=== PATIENT | male | born 1945 | race Caucasian/White ===

== ENCOUNTER → 2016-08-15 | Outpatient (CLI) | payer MEDICARE | END | disposition home or self-care (01) | LOC: GMAM 12:33 | PROVIDERS: ATTEND Family Medicine | DX: E03.9 Hypothyroidism, unspecified (principal) ==

== ENCOUNTER → 2017-02-18 | Outpatient (CLI) | payer MEDICARE | END | disposition home or self-care (01) | LOC: GMAM 10:27 | PROVIDERS: ATTEND Family Medicine | DX: Z12.5 Encounter for screening for malignant neoplasm of prostate (principal); E03.9 Hypothyroidism, unspecified | CPT/HCPCS: 84439; 84443; G0103 ==

== ENCOUNTER → 2017-02-18 | Outpatient (CLI) | payer MEDICARE | END | disposition home or self-care (01) | LOC: GMAM 15:23 | PROVIDERS: ATTEND Family Medicine | DX: R31.21 Asymptomatic microscopic hematuria (principal); N39.0 Urinary tract infection, site not specified ==

== ENCOUNTER → 2017-02-25 | Outpatient (CLI) | payer MEDICARE ==
--- NOTE | 2017-02-25 16:58 | CT ---
EXAM DESCRIPTION: Abdomen/Pelvis w/Contrast: CT. CLINICAL HISTORY: WEIGHT LOSS COMPARISON: CT scan of the abdomen without IV contrast 08/09/2013. CT scan of the thorax with IV contrast on this visit. TECHNIQUE: Spiral-axial scans at 5.0 mm intervals through the abdomen and pelvis, after nonionic IV contrast. No oral contrast. Coronal and sagittal 2.0 mm reconstructions. Delayed scans, liver through the pelvis. Axial-spiral 5mm. No adverse reactions. Total Exam DLP: 643.19 mGy-cm. This exam was performed according to our departmental dose-optimization program which includes automated exposure control, adjustment of the mA and/or kV according to patient size and/or use of iterative reconstruction technique; to reduce radiation dose to as low as reasonably achievable (ALARA). FINDINGS: Liver, Stomach, Spleen, Adrenal Glands: Minimal intrahepatic biliary dilatation. No focal lesions. Stomach is distended with gas and minimal fluid distally. Significant decrease in intra-abdominal fat around these organs compared to the prior study 2013. Pancreas, Gallbladder, Ducts: Gallbladder visualized. Minimal dilation of the common hepatic duct and proximal common bile duct. Between the distal common bile duct and the portal vein, the pancreas head and uncinate process appears enlarged with heterogeneous enhancement. Dimension is 3.7 cm transverse and 2.3 cm AP. Minimal fat around the pancreas. Distal body and tail of pancreas are not well visualized. Distal common bile duct is not dilated. Kidneys and Ureters: 3 mm radiodense stone mid right renal collecting system. 2 mm radiodense stone mid left renal collecting system. No hydronephrosis or perinephric fluid bilaterally. Decreased perirenal fat around the kidneys. Small left cortical cysts. Mesentery: Overall decreased content around the bowel and midabdomen. Normal density where visualized. Aorta: Moderate calcification mid and distal maximum diameter 2.1 cm below the kidneys. Decreased periaortic fat with small lymph nodes present. Small Bowel: Minimal gas mostly fluid difficult to evaluate due to lack of intra-abdominal fat. Terminal Ileum/Cecum: Cecum slightly distended by fecal material. TI and appendix are difficult to visualize. . Colon: Fecal matter throughout the colon less in the descending colon is sigmoid. Minimal redundancy of the sigmoid. Rectum distended by gas. Pelvic Organs: Ossifications in the prostate gland which appears to be enlarged and impresses on the base of the urinary bladder with bladder wall thickening. No radiodense stones in the bladder. Spine and Bony Pelvis: Narrowing of the bilateral hip joints. Advanced spondylosis L1-L2. Possible calcified synovial cyst or large spur encroaching on the right L3-4 foramen which is significantly compromised. Multiple levels of facet degeneration. Abdominal Wall/Back Soft Tissues: Decreased subcutaneous adipose tissue. IMPRESSION: 1. Overall decreased intra-abdominal fat and subcutaneous adipose tissue consistent with clinical history. 2. Questionable enlargement of the uncinate process and head of the pancreas. This may be associated with dilation of intrahepatic ducts, pancreatic duct and proximal common bile duct and narrowing of distal common bile duct. Evaluation of the pancreas and other abdominal organs would be improved with CT scan of the abdomen and pelvis with IV and oral contrast. Correlate with pancreatic function testing. Also consider ultrasound of the liver biliary ducts gallbladder and pancreas. 3. Enlarged prostate gland impressing on the base of the urinary bladder with wall thickening. Consider serum PSA testing and ultrasound urinary bladder and prostate. 4. Bilateral small stones in the kidneys without obstruction. 5. Lumbar spondylosis. Severe L1-L2. Calcified synovial cyst or spur in the right foramen at L3-4 with significant compromise. Consider follow-up lumbar MRI scan if lumbar radiculopathy present. Bilateral hip joint arthrosis. 6. Atherosclerotic narrowing of the distal abdominal aorta. Lack of fat and/or lymph nodes around the mid and distal aorta. Electronically signed by: Adrian Rodas MD 02/25/2017 4:57 PM [employer]
--- NOTE | 2017-02-25 17:26 | CT ---
EXAM DESCRIPTION: Chest w/Contrast : Computed Tomography. CLINICAL HISTORY: WEIGHT LOSS COMPARISON: CT scan abdomen and pelvis with IV contrast today. CT scan of the thorax with IV contrast 07/04/2015. TECHNIQUE: Spiral-axial scans at 5.0 mm intervals through the lungs and thorax with IV contrast. 2.5 mm lung algorithm axial reconstructions. Coronal and sagittal 2.0 Mm reconstructions. No adverse reactions. Total Exam DLP: 280.35 mGy-cm. This exam was performed according to our departmental dose-optimization program which includes automated exposure control, adjustment of the mA and/or kV according to patient size and/or use of iterative reconstruction technique; to reduce radiation dose to as low as reasonably achievable (ALARA). FINDINGS: Hyperinflation in the upper lung dale with prominent dilated airspaces in the periphery of the upper lobes. Also abutting the septa and the major fissures. Bilateral apical pleural thickening more prominent near the upper mediastinum. 6 mm soft tissue nodule in the anterior right middle lobe associated with the horizontal fissure (series 3, image 71). Calcified nodule also associated with the fissure slightly more posterior and superior. 2 mm subpleural nodule anterior lateral right upper lobe noncalcified (series 38). Scarring in the inferior right middle lobe. Round subpleural nodule medial posterior right lower lobe measuring 3.5 mm (series 107). More irregular lateral nodule measuring 4.5 mm at the same level and lateral to the diaphragm. Small irregular nodule, same level, in the posterior subpleural region noncalcified measuring 2.5 mm pleural nodule 4 mm slightly higher level posterior lateral right lower lobe (image 103). 7 mm soft tissue nodule, slightly irregular margins, more anterior at the same level. More complex group of multiple nodules or septal thickening in the anterior right lower lobe not quite subpleural (image 90-100). This complex region is not well seen on the prior study. 7 mm soft tissue nodule more posterior in the right lower lobe at the same level. Also irregular 7 mm nodule in the left lower lobe at the same level, with the nearby 4 mm nodule also subpleural. No pleural effusion or pneumothorax bilaterally. Thyroid gland not well seen in the mediastinum with minimal enhancement. 1.5 mm short axis enlarged superior right hilar nodes. 10 mm short axis AP window node. 1.2 cm short axis azygous space node. These nodes were present on the prior study. Central VAD tip in the SVC with left diffuse atherosclerotic calcification in the thoracic aorta and the proximal brachiocephalic vessels. Left Subclavian access. Minimal spondylosis at multiple levels. IV contrast enters the azygos vein and the hemiazygos vein resulting in contrast directly entering venous drainage of mid thoracic vertebra. There is also collateral flow in the right anterior and lateral chest wall. IMPRESSION: 1. Multiple nodules bilaterally significantly more than seen on the prior study. Some were better seen due to dedicated thin section lung algorithm used on this scan. However it is interpreted that there are new nodules bilaterally in the lower lobes. Cannot be determined if these are neoplastic or inflammatory. Some of the nodules appeared as part of a complex, especially right lower lobe. No nodules large enough for tissue sampling. Consider follow-up chest CT scan in 3 month interval and or PET scan. 2. Enlarged right hilar nodes and mediastinal nodes were also seen on the prior study. 3. Tip of VAD is abutting or corrected at the azygos vein in the SVC. Medication given in the VAD is likely to initially go into the hemiazygos system and venous drainage of the vertebra. Electronically signed by: Adrian Rodas MD 02/25/2017 5:25 PM [employer]
== END | disposition home or self-care (01) ==
LOC: CT 08:00
PROVIDERS: ATTEND Family Medicine
DX: E03.9 Hypothyroidism, unspecified (principal); R63.4 Abnormal weight loss

== ENCOUNTER → 2017-02-28 | Outpatient (CLI) | payer MEDICARE | END | disposition home or self-care (01) | LOC: GMAM 10:45 | PROVIDERS: ATTEND Family Medicine | DX: R93.8 Abnormal findings on diagnostic imaging of other specified body structures (principal) ==

== ENCOUNTER → 2017-03-04 | Outpatient (CLI) | payer MEDICARE ==
--- NOTE | 2017-03-04 16:45 | US ---
EXAM DESCRIPTION: Pancreas CLINICAL HISTORY: 71 years Male, ABNORMAL CT OR MRI COMPARISON: CT scan of the abdomen and pelvis with IV contrast 02/25/2017. TECHNIQUE: Transabdominal standard scanning: Two-dimensional and Doppler modes. FINDINGS: No stones or sludge in the gallbladder. No wall thickening or fluid. Nontender with transducer pressure. Common bile duct dilated 7.8 mm. Pancreas normal echogenicity and uniform echoes. Head of the pancreas measures approximately 2.0 x 1.6 cm. Pancreatic duct is dilated measuring 3.2 mm. No fluid around the pancreas. No cysts. Normal ultrasound of the liver. Smooth capsule. No intrahepatic biliary dilatation. Normal hepatopedal flow of the portal vein. No ascites. Right kidney measures 10.5 cm long axis. Lobulated contour with echogenicity of the cortex equal to the liver. No hydronephrosis or perinephric fluid. Upper pole object with increased echogenicity measuring 6.7 mm but no definite acoustic shadowing. Vascularity by Doppler. IMPRESSION: 1. Normal size of the head of the pancreas normal echogenicity in the pancreas. No cysts or fluid. Pancreatic duct is not dilated. 2. Normal ultrasound of the gallbladder. No wall thickening or fluid. Common bile duct is dilated. Consider MRCP or ERCP. 3. Normal ultrasound of the liver. 4. Lobulated contour and increased echogenicity of the right renal cortex but no thickening. 6 mm echogenic object in the kidney with no shadowing. 3 mm stone seen on prior CT scan. 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
== END ==
LOC: US 09:30
PROVIDERS: ATTEND Family Medicine
DX: R93.8 Abnormal findings on diagnostic imaging of other specified body structures (principal); R63.4 Abnormal weight loss; N20.0 Calculus of kidney; R91.8 Other nonspecific abnormal finding of lung field; M47.16 Other spondylosis with myelopathy, lumbar region

== ENCOUNTER → 2017-04-10 | Outpatient (CLI) | payer MEDICARE ==
--- NOTE | 2017-04-10 16:54 | CT ---
EXAM DESCRIPTION: Abdomen/Pelvis w/Contrast: Computed Tomography. CLINICAL HISTORY: HYPERPLASIA OF PROSTATE COMPARISON: CT scan of abdomen and pelvis 08/09/2013. CT scan of the chest with contrast 02/25/2017. TECHNIQUE: Spiral-axial scans at 5.0 mm intervals through the abdomen and pelvis, after water-soluble oral contrast and nonionic IV contrast. Coronal and sagittal 2.0 mm reconstructions. Delayed scans, liver through the pelvis. Axial-spiral 5mm. No adverse reactions. Total Exam DLP: 777.97 mGy-cm. This exam was performed according to our departmental dose-optimization program which includes automated exposure control, adjustment of the mA and/or kV according to patient size and/or use of iterative reconstruction technique; to reduce radiation dose to as low as reasonably achievable (ALARA). FINDINGS: Lung bases and pleura: Minimally dilated lung spaces bilaterally with minimally prominent bibasilar interstitial markings. 4 mm subpleural soft tissue nodule in the posterior right lower lobe on series 2, image 2). Liver, Stomach, Spleen, Adrenal Glands: Minimal intrahepatic biliary dilatation but no focal liver lesions. Oral contrast in the stomach but not distended. Spleen and adrenal glands are negative.. Pancreas, Gallbladder, Ducts: Gallbladder visualized. Dilated common bile duct. Pancreas not well visualized due to stomach small bowel and colon and lack of fat the organs. Pancreatic head may be enlarged with decreased enhancement. Kidneys and Ureters: Tiny cyst in the inferior pole of the left kidney in the superior pole the right kidney, otherwise unremarkable. Mesentery: No free air or free fluid. No ascites. Aorta: Moderate coronary calcification including the ostia of the major branch vessels extending into the bilateral common iliac arteries. Narrowing of the distal aortic lumen. 1 cm short axis periaortic lymph node posterior to the left renal vein. Small Bowel: Containing fluid and gas and oral contrast but not distended. Terminal Ileum/Cecum: No oral contrast in the TI or cecum. Cecum distended by fecal material. Appendix not seen.. Surrounding fat minimal and thus difficult to evaluate Colon: Diffuse fecal matter in ascending colon transverse colon with less fecal material in the descending colon but diffuse fecal material in the rectosigmoid which is minimally redundant. Pelvic Organs: Calcifications centrally in the prostate gland abutting the urinary bladder. Spine and Bony Pelvis: Fusion of the L1-L2 vertebral bodies at the disc space; significantly narrowed with bilateral neural foraminal narrowing. Bilateral L4-5 and L5-S1 facet arthrosis. Spondylosis included thoracic spine. Bilateral hip joint space narrowing. Abdominal Wall/Back Soft Tissues: No definite hernia. IMPRESSION: 1. Dilated common bile duct and head of the pancreas may be enlarged with margins poorly defined. Pancreatic duct is not dilated. Consider right upper quadrant abdominal ultrasound. 2. Small periaortic lymph node at the level of the left renal vein. 3. 4 mm soft tissue nodule subpleural base right lower lobe lung. Dilated airspaces bilaterally. Consider follow-up chest CT scan without IV contrast. 4. Spondylosis in the lumbar spine advanced at the L1-2 level with canal and foraminal narrowing. Facet arthrosis more inferiorly. 5. Diffuse fecal obstipation of the colon. Electronically signed by: Adrian Rodas MD 04/10/2017 4:53 PM [facility]
== END ==
LOC: CT 08:50
PROVIDERS: ATTEND Family Medicine
DX: R93.8 Abnormal findings on diagnostic imaging of other specified body structures (principal); N40.1 Benign prostatic hyperplasia with lower urinary tract symptoms; R91.1 Solitary pulmonary nodule; M47.896 Other spondylosis, lumbar region; K59.09 Other constipation

== ENCOUNTER → 2017-09-03 | Outpatient (CLI) | payer MEDICARE | LOC: LAB.NP 10:47 | PROVIDERS: ATTEND Family Medicine | DX: E03.9 Hypothyroidism, unspecified (principal); M10.9 Gout, unspecified ==

== ENCOUNTER → 2017-10-16 | Outpatient (CLI) | payer MEDICARE ==
--- NOTE | 2017-10-16 11:10 | CT ---
EXAM DESCRIPTION: Chest w/Contrast CLINICAL HISTORY: 71 years, Male, PULMONARY NODULE COMPARISON: CT chest with contrast February 25, 2017, CT abdomen and pelvis with contrast April 10, 2017 TECHNIQUE: Thin-section noncontrast axial CT images are obtained according to our protocol. Reconstructed MPR images are created and reviewed as well. FINDINGS: Lungs: Biapical parenchymal scarring suggests radiation fibrosis. Clinical correlation recommended. Severe centrilobular and panlobular emphysematous changes are seen in the upper lobes. Small calcified granuloma in the right middle lobe is seen in addition to noncalcified nodule 6 mm unchanged from previous study. Scattered groundglass infiltrates are seen with numerous tiny nodules and scattered areas of septal thickening in the lower lobes. Small incompletely solid nodule in the anterior segment left upper lobe appears new and measures 5 mm. This can be followed. Small nodule in the subpleural posterior basal right lower lobe measures 4 mm (axial image 105, series 4) and could be followed. Other areas of nodular infiltration could be followed as well. Previous study February 2017 showed nodularity of the right lower lobe and overall this appears improved. Findings are most consistent with indolent infection as with fungal agent or mycobacterium avium intracellulare. Correlate with bronchoscopic cultures if obtainable. Nodularity in the left lower lobe also appears significantly improved since February 2017 but unchanged compared to more recent images of the lower lung bases from April 10, 2017. Mediastinum: Mildly prominent mediastinal and right hilar lymph nodes are reactive and stable compared to the previous study. Normal vascular contours. Heart size is normal with no pericardial effusion. Chest wall/axilla: No mass or adenopathy. Lower neck/supraclavicular: No mass or adenopathy. Upper abdomen: Unremarkable upper abdominal viscera. Coronal and sagittal reformatted images confirm the findings. Compared to images to the lower chest from the more recent CT abdomen and pelvis April 10, 2017, interstitial and groundglass infiltrates and subtle nodularity appear stable. Previous report mentioned 4 mm subpleural nodule in the right lower lobe and this is stable. Findings are markedly improved from earlier exam in February 2017. Continued follow-up is recommended with a repeat CT of the chest in six months. IMPRESSION: Markedly improved appearance of the chest compared to February 27, 2017. See above. Stable appearance of the lung bases compared to April 10, 2017 (including subpleural 4 mm nodule right lower lobe). 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 Severe emphysema. This exam was performed according to our departmental dose-optimization program, which includes automated exposure control, adjustment of the mA and/or kV according to patient size and/or use of iterative reconstruction technique. Total DLP equals 316.76 mGycm. Electronically signed by: Ziggy Saucedo MD 10/16/2017 11:08 AM CDT
== END ==
LOC: CT 08:02
PROVIDERS: ATTEND Family Medicine
DX: R91.8 Other nonspecific abnormal finding of lung field (principal); J43.9 Emphysema, unspecified

== ENCOUNTER → 2018-03-16 | Outpatient (CLI) | payer MEDICARE | LOC: GMAM 13:15 | PROVIDERS: ATTEND Family Medicine | DX: E03.9 Hypothyroidism, unspecified (principal); M10.9 Gout, unspecified; Z12.5 Encounter for screening for malignant neoplasm of prostate | CPT/HCPCS: 84439; 84443; 84550; G0103 ==

== ENCOUNTER → 2018-10-22 | Outpatient (CLI) | payer MEDICARE | LOC: GMAM 10:24 | PROVIDERS: ATTEND Family Medicine | DX: E03.9 Hypothyroidism, unspecified (principal); I10 Essential (primary) hypertension; M10.9 Gout, unspecified ==